=== PATIENT | female | born 1980 | race Two or more races ===

== ENCOUNTER 2024-04-21 05:50 | Day surgery (SDC) | payer OTHER ==
[2024-04-14 10:50] VITALS: BP 130/78
[~2024-04-21] VITALS: Ht 160 cm; Wt 65.8 kg
[2024-04-21] MEDS ORDERED: METRONIDAZOLE/SODIUM CHLORIDE 500 MG/100 ML PIGGYBACK IV ONE (09:27)
[2024-04-21] MEDS ORDERED: CEFTRIAXONE SODIUM 2,000 MG VIAL ONE (09:27)
[2024-04-21] MEDS ORDERED: DIBUCAINE 30 GM TUBE ONE (12:20)
[2024-04-21] MEDS ORDERED: HEMOSTATIC MATRIX 1 KIT KIT TOP ONE (12:21)
[2024-04-21] MEDS ORDERED: BUPIVACAINE HCL/Mpf 0.5% 10ML VIAL ONE (12:21)
[2024-04-21] MEDS ORDERED: POVIDONE-IODINE 118 ML BOTT TOP ONE (12:21)
[2024-04-21] MEDS ORDERED: BUPIVACAINE LIPOSOME/PF 266 MG/20 ML VIAL IJ ONE (12:22)
[2024-04-21] MEDS ORDERED: OXYCODONE HCL5 MG PO (13:29)
[2024-04-21] MEDS ORDERED: TAMSULOSIN HCL 0.4 MG CAP PO ONE ×2 (13:30→14:50)
== END 2024-04-21 18:00 | disposition home or self-care (01) ==
LOC: CIR.AMB 05:50
PROVIDERS: ATTEND Surgery
DX: D37.5 Neoplasm of uncertain behavior of rectum (principal); K64.2 Third degree hemorrhoids; K62.0 Anal polyp; K62.89 Other specified diseases of anus and rectum; K62.5 Hemorrhage of anus and rectum

== ENCOUNTER 2024-04-30 11:18 | Emergency (ER) | payer OTHER ==
[~2024-04-30] VITALS: Ht 160 cm; Wt 63.5 kg
[~2024-04-30 11:18] MED LIST: OXYCODONE HCL5 MG PO
[2024-04-30] MEDS ORDERED: 0.9 % SODIUM CHLORIDE 1,000 ML IV ONE (14:30)
[2024-04-30 15:09] LABS: HEMATOCRIT 42.9 % (36.0-45.00); HEMOGLOBIN 14.8 g/dL (12.0-15.00); MEAN CORPUSCULAR HEMOGLOBIN 29.6 pg (27.00-32.0); MEAN CORPUSCULAR HGB CONC 34.4 g/dl (32.0-36.0); PLATELET COUNT 175 K/uL (150-450); RED BLOOD COUNT 4.99 M/uL (4.00-6.00)
[2024-04-30 15:36] LABS: ALBUMIN 3.9 gm/dL (3.4-5.0); ALKALINE PHOSPHATASE 60 U/L (50-136); ALT/SGPT 23 U/L (12-78); ANION GAP 8 (10.0-20.0); AST/SGOT 16 U/L (15-37); BILIRUBIN TOTAL 0.59 mg/dL (0.3-1.2); BLOOD UREA NITROGEN 19 mg/dL (7-18); BUN CREA RATIO 20 (7.0-25.0); CALCIUM 9.3 mg/dL (8.5-10.1); CARBON DIOXIDE 26 mEq/L (21-32); CHLORIDE 110 mmol/L (98-107); CREATININE SERUM 0.97 mg/dL (0.55-1.02); GLOBULINA 3.7 G/DL (2.4-3.5); GLUCOSE FASTING 103 mg/dL (65-100); OSMOLALITY SERUM 282 MOSM/KG (275-295); POTASSIUM 4.14 mEq/L (3.5-5.1); SODIUM 140 mmol/L (136-145); TOTAL PROTEIN 7.6 gm/dL (6.4-8.2)
[2024-04-30 16:04] LABS: HCG QUANTITATIVE < 1 mUI/mL (1-3)
== END 2024-04-30 22:28 | disposition home or self-care (01) ==
LOC: ER 11:21
PROVIDERS: General Practice
DX: K64.8 Other hemorrhoids (principal)
CPT/HCPCS: 36415; 74177; 99284; Q9965